=== PATIENT | female | born 1955 | race Two or more races ===

== ENCOUNTER 2019-06-27 17:07 | Inpatient (IN) | payer OTHER ==
[~2019-06-27] VITALS: Ht 162.6 cm; Wt 80.7 kg
[2019-06-27] MEDS ORDERED: ZESTRIL20 MG (19:05)
[2019-06-27] MEDS ORDERED: LEVOXYL25 MCG (19:05)
[2019-06-27] MEDS ORDERED: HORIZANT300 MG (19:05)
--- NOTE | 2019-06-27 19:09 | NUR ---
SE RECIBE PACIENTE ALERTA Y ORIENTADA POR FIONA ESFERAS QUIEN REFIERE ES ENVIADA POR DE. Clark DUNN POR OBSTRUCCION INTESTINAL. PACIENTE VERBALIZA DOLOR ABDOMINAL.
--- NOTE | 2019-06-27 21:15 | NUR ---
SE ORIENTA A PTE SOBRE PROCESO DE VENOPUNCION, JANEY DE MUESTRAS, ADMINISTRACION DE MED IV PTE REFIERE ENTENDER INF HEENA POR RN DE DAMIAN.
[2019-07-05] MEDS ORDERED: INTESTINEX680 M1 PO (09:30)
[2019-07-05] MEDS ORDERED: PERCOCET 5-3251 EACH PO (09:30)
[2019-07-05] MEDS ORDERED: OMEPRAZOLE20 MG PO (09:30)
== END 2019-07-05 14:35 | disposition home or self-care (01) | DRG 330 ==
LOC: ER 17:07 → SURH 22:21 → SURG 22:21 → SURH 07-01 12:42
PROVIDERS: ADMIT Surgery
PROC: BW21ZZZ Computerized Tomography (CT Scan) of Abdomen and Pelvis (ICD-10-PCS; 2019-06-27)
PROC: 02HV33Z Insertion of Infusion Device into Superior Vena Cava, Percutaneous Approach (ICD-10-PCS; 2019-06-28)
PROC: 30233N1 Transfusion of Nonautologous Red Blood Cells into Peripheral Vein, Percutaneous Approach (ICD-10-PCS; 2019-06-30)
PROC: 0DJD8ZZ Inspection of Lower Intestinal Tract, Via Natural or Artificial Opening Endoscopic (ICD-10-PCS; 2019-07-01)
PROC: 0DH67UZ Insertion of Feeding Device into Stomach, Via Natural or Artificial Opening (ICD-10-PCS; 2019-07-01)
PROC: 3E0G76Z Introduction of Nutritional Substance into Upper GI, Via Natural or Artificial Opening (ICD-10-PCS; 2019-07-01)
PROC: 0DTN4ZZ Resection of Sigmoid Colon, Percutaneous Endoscopic Approach (ICD-10-PCS; principal; 2019-07-01 13:00)
DX: K56.2 Volvulus (principal); D62 Acute posthemorrhagic anemia; K56.41 Fecal impaction

== ENCOUNTER 2020-08-17 07:51 | Outpatient (CLI) | payer OTHER ==
[~2020-08-17 07:51] MED LIST: HORIZANT300 MG; INTESTINEX680 M1 PO; LEVOXYL25 MCG; OMEPRAZOLE20 MG PO; PERCOCET 5-3251 EACH PO; ZESTRIL20 MG
== END 2020-08-17 08:15 ==
LOC: RAD 07:51
PROVIDERS: ATTEND Surgery
DX: K56.699 Other intestinal obstruction unspecified as to partial versus complete obstruction (principal); K56.2 Volvulus; R10.84 Generalized abdominal pain; R14.0 Abdominal distension (gaseous)

== ENCOUNTER 2020-09-03 06:45 | Day surgery (SDC) | payer OTHER | END 2020-09-03 10:50 | disposition home or self-care (01) | LOC: AMB-ENDOS 06:45 | PROVIDERS: ATTEND Surgery | DX: K62.89 Other specified diseases of anus and rectum (principal); Z20.828 Contact with and (suspected) exposure to other viral communicable diseases ==

== ENCOUNTER 2021-12-23 10:47 | Outpatient (CLI) | payer OTHER | END 2021-12-23 10:51 | disposition home or self-care (01) | LOC: RAD 10:47 | PROVIDERS: ATTEND Surgery | DX: K56.2 Volvulus (principal); R10.9 Unspecified abdominal pain; K56.50 Intestinal adhesions [bands], unspecified as to partial versus complete obstruction; R14.0 Abdominal distension (gaseous) ==